=== PATIENT | female | born 1975 | race Caucasian/White ===

== ENCOUNTER 2016-09-11 18:23 | Inpatient (IN) | payer OTHER ==
[~2016-09-11] VITALS: Ht 162.6 cm; Wt 85.5 kg
[~2016-09-11 18:23] MED LIST: MACROBID100 MG PO; MOTRIN800 MG PO; ONDANSETRON ODT8 MG PO; PRENATAL VITAM1 EA11 PO
[2016-09-11 18:36] VITALS: BP 137/90
[2016-09-11] MEDS ORDERED: PRENATAL GUMMI1 EACH PO (19:06)
[2016-09-11] MEDS ORDERED: IRON325 M1 PO (19:06)
[2016-09-11 19:29] LABS: EOSINOPHIL (%) 0.4 % (0-5); IMMATURE GRANULOCYTE (%) 0.4 % (0.0-0.7); INSTRUMENT ABS NEUTROPHIL CT 4.6 K/uL; LYMPHOCYTE COUNT 1.7 K/uL (1.0-2.8); MCH 31.2 PG (29.0-34.0); MCHC 34.4 G/DL (30.0-36.0); MCV 90.7 FL (83-99); MEAN PLAT.VOLUME 10.4 uM^3 (9.5-12.4); MONOCYTE (%) 7.2 % (3-12); MONOCYTE COUNT 0.5 K/uL (0-0.8); NEUTROPHIL (%) 67.6 % (45-76); NEUTROPHIL COUNT 4.6 K/uL (1.8-6.4); PLATELET COUNT 165 K/uL (156-360); RBC DIS.WIDTH-CV 14.6 % (11.8-14.6); RBC DIS.WIDTH-SD 48.6 % (39-53); WHITE BLOOD COUNT 6.8 K/uL (4.1-10.2)
[2016-09-11 19:31] VITALS: BP 131/80
[2016-09-11 19:38] LABS: CHLORIDE 110 mEq/L (99-109); POTASSIUM 3.7 mEq/L (3.7-5.4); SODIUM 138 mEq/L (136-147)
[2016-09-11 19:40] LABS: GLUCOSE 84 mg/dL (70-99)
[2016-09-11 19:42] LABS: ANION GAP 11 MEQ/L (2-14)
[2016-09-11 19:44] LABS: ALKALINE PHOSPHATASE 99 IU/L (3-129); GFR ESTIMATE (CALCULATED) > 59 mL/min/
[2016-09-11 19:45] LABS: UREA NITROGEN (BUN) 10 mg/dL (9-23)
[2016-09-11 20:00] LABS: TOTAL BILIRUBIN 0.3 mg/dL (0.0-1.0)
[2016-09-11 20:03] VITALS: BP 123/66
[2016-09-11] MEDS ORDERED: MOTRIN800 MG PO (22:25)
[2016-09-11] MEDS ORDERED: PERCOCET 5/31 TABLET PO (22:25)
[2016-09-11 23:24] VITALS: BP 122/77
[2016-09-12] VITALS (7 sets, daily range): BP systolic 108–125; BP diastolic 53–81
[2016-09-12 07:59] LABS: EOSINOPHIL (%) 0 % (0-5); HEMATOCRIT 31.6 % (36.0-46.0); IMMATURE GRANULOCYTE (%) 0.4 % (0.0-0.7); INSTRUMENT ABS NEUTROPHIL CT 9.2 K/uL; LYMPHOCYTE COUNT 1.3 K/uL (1.0-2.8); MCH 31.5 PG (29.0-34.0); MCHC 34.8 G/DL (30.0-36.0); MCV 90.5 FL (83-99); MEAN PLAT.VOLUME 10.7 uM^3 (9.5-12.4); MONOCYTE (%) 5.8 % (3-12); MONOCYTE COUNT 0.7 K/uL (0-0.8); NEUTROPHIL (%) 82.3 % (45-76); NEUTROPHIL COUNT 9.2 K/uL (1.8-6.4); PLATELET COUNT 129 K/uL (156-360); RBC DIS.WIDTH-CV 14.9 % (11.8-14.6); RBC DIS.WIDTH-SD 48.7 % (39-53); RED BLOOD COUNT 3.49 M/uL (3.80-5.20)
[2016-09-12 08:01] LABS: WHITE BLOOD COUNT 11.1 K/uL (4.1-10.2)
[2016-09-13 03:09] VITALS: BP 101/56
[2016-09-13 07:39] VITALS: BP 131/72
[2016-09-13 11:29] VITALS: BP 114/66
[2016-09-13 15:35] VITALS: BP 118/66
[2016-09-13] MEDS ORDERED: BREAST PUMP MC (16:36)
[2016-09-13 19:26] VITALS: BP 118/60
[2016-09-13 22:22] VITALS: BP 126/70
[2016-09-15] VITALS: BP 122/61
[2016-09-15 08:15] VITALS: BP 132/75
== END 2016-09-15 15:54 | disposition home or self-care (01) | DRG 765 ==
LOC: LDRP-OP 18:23 → 2WEST 18:24 → LDRP-OP 11-03 13:17
PROVIDERS: Midwife; Obstetrics & Gynecology
PROC: 10D00Z1 Extraction of Products of Conception, Low, Open Approach (ICD-10-PCS; principal; 2016-09-11)
DX: O32.2XX2 Maternal care for transverse and oblique lie, fetus 2 (principal); O30.043 Twin pregnancy, dichorionic/diamniotic, third trimester; Z37.2 Twins, both liveborn; O71.89 Other specified obstetric trauma; O99.344 Other mental disorders complicating childbirth; F41.9 Anxiety disorder, unspecified; Z3A.36 36 weeks gestation of pregnancy
CPT/HCPCS: 80053; 82570; 84156; 85025; 88307; J0690; J1100; J1885; J2210; J2274; J2405; J2590; J3010; J7120

== ENCOUNTER 2017-01-07 19:23 | Emergency (ER) | payer OTHER ==
[~2017-01-07] VITALS: Ht 162.6 cm; Wt 77.5 kg
[~2017-01-07 19:23] MED LIST changes: +BREAST PUMP MC; +IRON325 M1 PO; +PERCOCET 5/31 TABLET PO; +PRENATAL GUMMI1 EACH PO
[2017-01-07 21:00] VITALS: BP 121/56
== END 2017-01-07 21:00 | disposition home or self-care (01) ==
LOC: RME 19:23 → EME 19:23 → RME 21:00
DX: M79.661 Pain in right lower leg (principal); M79.1 Myalgia
CPT/HCPCS: 93971; 99281; 99283